=== PATIENT | female | born 1940 | race Caucasian/White ===

== ENCOUNTER 2020-02-07 13:30 | Outpatient (RCR) | payer MEDICARE, SELFPAY ==
--- NOTE | 2020-02-12 10:51 | PCCPR ---
Absent today, not feeling well.
--- NOTE | 2020-02-14 09:35 | PCCPR ---
Program is temporarily suspended due to COVID outbreak.
--- NOTE | 2020-02-21 14:14 | PCCPR ---
Called patient in regards to the temporary closure of our department continuing until at least March 21. NO ANSWER-left message. Will continue to follow.
--- NOTE | 2020-02-22 09:31 | PCCPR ---
Pt returned call from yesterday. States she is doing well, riding her bike 15 minutes and walking daily. She denies any further questions at this time. Will send home exercise packet via mail.
--- NOTE | 2020-02-28 11:57 | PCCPR ---
Addendum entered by Mari Bowers RN 02/28/20 13:41: Levy called back and said that she is doing well and is walking outside on days that she can and doing the weights at home. She received the home exercise guidelines. Original Note: Called Levy today for weekly checks, did not answer phone, message left.
--- NOTE | 2020-03-05 15:38 | PCCPR ---
Spoke with Levy she has been riding her stationary bike 3 times per day 15 min each. she has been doing some strength trng with light 3 lb weights at home and walking outdoors as weather permits. States the last 3 days has been quite windy.
--- NOTE | 2020-03-13 13:35 | PCCPR ---
Weekly update call-Left message.
--- NOTE | 2020-04-04 12:56 | PCCPR ---
Starting Bi-Weekly Calls. Spoke with patient. Was in the hospital previously with [facility] and had to have surgery. No questions or concerns at this time.
--- NOTE | 2020-04-18 15:19 | PCCPR ---
Spoke with Levy today, recovering well after her surgery and starting to walk in her neighborhood. No questions or concerns at this time.
--- NOTE | 2020-04-30 13:46 | PCCPR ---
Message left for Levy requesting she call and update us on her plan to return upon our reopening May.
--- NOTE | 2020-06-24 13:52 | PCCPR ---
Absent Amado called states she was not sure she would make it in due to a repair man coming to her home and when.
== END 2020-02-07 23:59 | disposition home or self-care (01) ==
LOC: ANHCPREHAB 13:30
DX: Z95.2 Presence of prosthetic heart valve (principal); Z95.5 Presence of coronary angioplasty implant and graft
CPT/HCPCS: 93798

== ENCOUNTER 2020-05-29 13:35 | Outpatient (RCR) | payer MEDICARE, SELFPAY | END 2020-07-25 18:53 | disposition home or self-care (01) | LOC: ANHCPREHAB 13:35 | DX: Z95.2 Presence of prosthetic heart valve (principal); Z95.5 Presence of coronary angioplasty implant and graft; K22.3 Perforation of esophagus | CPT/HCPCS: 99199 ==

== ENCOUNTER 2024-02-04 21:16 | Emergency (ER) | payer MEDICARE, SELFPAY ==
[2024-02-04 21:25] VITALS: BP 133/75; PULSE 110; RESP 15; TEMP 37.2; O2SAT 98
--- NOTE | 2024-02-04 21:53 | ED.WOUNDLAC ---
HPI - Wound/Laceration General Chief Complaint: Wound/Laceration Stated Complaint: finger laceration, on eliquis Time Seen by Provider: 02/04/24 21:42 History of Present Illness HPI narrative: pt cut her L index finger yesterday, she is on eliquis; bleeding seemed controlled until she bumped it again today and it wouldn't stop bleeding. NO pain. Related Data Home Medications Medication Instructions Recorded Confirmed amlodipine 5 mg tablet 5 mg PO DAILY 01/12/20 01/12/20 atorvastatin 20 mg tablet 20 mg PO DAILY 01/12/20 01/12/20 carvedilol 12.5 mg tablet 12.5 mg PO BID 01/12/20 01/12/20 clopidogrel 75 mg tablet 75 mg PO DAILY 01/12/20 01/12/20 fluticasone propionate 50 1 spray intranasal DAILY PRN 01/12/20 01/12/20 mcg/actuation nasal Allergy Symptoms spray,suspension (Flonase Allergy Relief) levothyroxine 50 mcg tablet 50 mcg PO DAILY 01/12/20 01/12/20 omeprazole magnesium 20 mg 20 mg PO DAILY 01/12/20 01/12/20 tablet,delayed release (Prilosec OTC) aspirin 81 mg tablet,delayed 81 mg PO DAILY 01/25/20 01/25/20 release (Adult Low Dose Aspirin) ferrous sulfate 324 mg (65 mg 324 mg PO DAILY 01/25/20 01/25/20 iron) tablet,delayed release furosemide 20 mg tablet 20 mg PO DAILY 05/29/20 05/30/20 sodium bicarbonate 650 mg tablet 650 mg PO TID 05/30/20 05/30/20 Allergies Allergy/AdvReac Type Severity Reaction Status Date / Time No Known Allergies Allergy Unverified 08/05/14 19:17 Review of Systems Review of Systems: All systems reviewed & are unremarkable except as noted in HPI and below Exam Narrative: EXAMINATION OF ORGAN SYSTEMS/BODY AREAS: Constitutional: Vital signs per nursing GENERAL:[No acute distress, non-toxic appearing.] HEAD: Normal with no signs of head trauma. EYES: EOMI, conjunctiva normal ENT: Hearing grossly intact LUNGS: Nonlabored breathing. HEART: [Regular rate and rhythm] ABD: [Soft], [tender to palpation] EXT: Normal range of motion SKIN: Tiny oozing lac L index finger NEURO: [Alert and oriented x 3. No gross focal sensory or strength deficits.] PSYCH: Normal affect Course Vital Signs Vital signs: Vital Signs Temperature 98.9 F 02/04/24 21:25 Pulse Rate 110 H 02/04/24 21:25 Respiratory Rate 02/04/24 21:25 Blood Pressure 133/75 02/04/24 21:25 Pulse Oximetry 98 02/04/24 21:25 Temperature 98.9 F 02/04/24 21:25 Pulse Rate 110 H 02/04/24 21:25 Respiratory Rate 15 02/04/24 21:25 Blood Pressure 133/75 02/04/24 21:25 Pulse Oximetry 98 02/04/24 21:25 Procedures Laceration Laceration 1: Date: 02/04/24 Site: hand Side (If applicable): left Size (cm): 0.5 Description: linear Depth: simple, single layer Local Anesthetic: lidocaine 1% and with epi Amount of anesthesia used (mL): 1 Pre-repair: wound explored and irrigated ====== Skin Level ====== Skin layer closed with: vicryl Size (cm): 4-0 Number of sutures: 1 Technique: simple, interrupted ====== Subcutaneous Layer ====== ====== Muscle Layer ====== ====== Tendon Layer ====== MDM - Wound/Laceration MDM Narrative Medical decision making narrative: 83F here with bleeding lac to L index finger, didn't stop with direct pressure and with lido+epi injection so I did opt for 1 suture for bleeding control. Cleaned well beforehand and doesn't appear contaminated; povidone/iodine used. After 1 stitch it stopped bleeding. Wound dressed and f/u info and return precautions and wound care instructions provided. Discharge Plan Discharge Clinical Impression: Laceration Patient Disposition: Home, Self-Care Condition: Stable Instructions: Antibiotic Form, Laceration (ED) Additional Instructions: Please follow-up with the primary care doctor, come back to the hospital for any further issues. If you notices any further bleeding, you can hold more pressure and com
== END 2024-02-04 22:09 | disposition home or self-care (01) ==
LOC: ANHED 21:58
PROVIDERS: Emergency Provider Emergency Medicine
DX: S61.211A Laceration without foreign body of left index finger without damage to nail, initial encounter (principal); Z23 Encounter for immunization; Z79.82 Long term (current) use of aspirin; Z79.01 Long term (current) use of anticoagulants; X58.XXXA Exposure to other specified factors, initial encounter
CPT/HCPCS: 12001; 90471; 99282